=== PATIENT | female | born 1955 | race Caucasian/White ===

== ENCOUNTER 2023-07-05 17:06 | Emergency (ER) | payer OTHER, MEDICARE ==
[~2023-07-05] VITALS: Ht 167.6 cm; Wt 59.0 kg
[2023-07-05] MEDS ORDERED: TRELEGY ELLIPT1 EACH INH (17:21)
[2023-07-05] MEDS ORDERED: AVALIDE 150-121 EACH PO (17:22)
[2023-07-05 17:49] LABS: BASO % 0.7 % (0.0-1.0); EOS # 0.5 10*3/uL (0.0-0.4); EOS % 8.4 % (1.0-4.0); HEMATOCRIT 42.8 % (37.0-47.0); LYMPH # 2.4 10*3/uL (1.3-4.4); LYMPH % 40.5 % (27.0-41.0); MEAN CELL VOLUME 94.3 fl (81.0-99.0); MEAN CORPUSCULAR HGB 30.4 pg (27.0-31.0); MEAN CORPUSCULAR HGB CONC 32.2 g/dl (33.0-37.0); MEAN PLATELET VOLUME 9.7 fl (9.6-12.3); MONO # 0.6 10*3/uL (0.1-1.0); NEUT # 2.4 10*3/uL (2.3-7.9); NEUT % 40.2 % (47.0-73.0); PLATELET COUNT AUTOMATED 259 10*3/uL (130-400); RED BLOOD COUNT 4.54 10*6/uL (4.10-5.10); RED CELL DISTRI WIDTH 12.2 % (0-14.5); WHITE BLOOD COUNT 5.9 10*3/uL (4.8-10.8)
[2023-07-05 18:10] LABS: ALKALINE PHOSPHATASE 89 U/L (46-116); BUN 15 mg/dl (9-23); CHLORIDE 108 mmol/L (98-107); POTASSIUM 4.3 mmol/L (3.4-5.1); SGPT/ALT 8 U/L (5-49); TOTAL PROTEIN 6.8 gm/dL (6.0-8.0)
[2023-07-05 18:15] LABS: ACT PARTIAL THROMBO TIME 24.5 SECONDS (20.0-32.1)
[2023-07-05] MEDS ORDERED: PAXLOVID 300-11 EAC3 PO (20:40)
== END 2023-07-05 21:00 | disposition home or self-care (01) ==
LOC: ED 17:06
PROVIDERS: Family Medicine
DX: U07.1 COVID-19 (principal); J45.909 Unspecified asthma, uncomplicated; R07.89 Other chest pain